=== PATIENT | female | born 1995 | race Hispanic/Latino ===

== ENCOUNTER 2018-10-27 17:34 | Emergency (ER) | payer OTHER, SELFPAY ==
--- NOTE | 2018-10-27 18:04 | RAD ---
Left knee 4 views HISTORY: Left knee injury. FINDINGS: Joint spaces are preserved. No acute fracture or dislocation are apparent. There is fluid d istention of the suprapatellar bursa on the lateral view. IMPRESSION: Distended joint capsule with fluid. Consider internal derangement and soft tissue injury. No acute osseous abnormalities are demonstrated.
== END 2018-10-27 18:25 | disposition home or self-care (01) ==
LOC: ERS 17:34
DX: M25.562 Pain in left knee (principal); X50.1XXA Overexertion from prolonged static or awkward postures, initial encounter; Y92.830 Public park as the place of occurrence of the external cause

== ENCOUNTER 2023-11-22 12:16 | Outpatient (CLI) | payer OTHER | END 2023-11-22 12:17 | disposition home or self-care (01) | LOC: BICULT 12:16 | PROVIDERS: ATTEND Nurse Practitioner Women's Health | DX: O09.892 Supervision of other high risk pregnancies, second trimester (principal); Z3A.23 23 weeks gestation of pregnancy | CPT/HCPCS: 76805 ==